=== PATIENT | male | born 1995 | race Caucasian/White ===

== ENCOUNTER → 2017-05-29 | Outpatient (CLI) | payer OTHER | LOC: BMCIMAGING 13:43 | PROVIDERS: ATTEND Family Medicine | DX: S92.351A Displaced fracture of fifth metatarsal bone, right foot, initial encounter for closed fracture (principal) ==

== ENCOUNTER → 2017-06-19 | Outpatient (CLI) | payer OTHER | LOC: BMCIMAGING 14:03 | PROVIDERS: ATTEND Podiatrist Foot & Ankle Surgery | DX: S92.351D Displaced fracture of fifth metatarsal bone, right foot, subsequent encounter for fracture with routine healing (principal) ==

== ENCOUNTER 2018-02-07 19:29 | Observation (INO) | payer OTHER ==
[2018-02-07] MEDS ORDERED: NS 1,000 ML IV ONE ×2 (20:03→20:11)
[2018-02-07 20:08] LABS: PLATELET COUNT 188 10^3/uL (150-400)
[2018-02-07] MEDS ORDERED: ONDANSETRON 4 MG/2 ML VIAL IVP ONE (20:11)
[2018-02-07] MEDS ORDERED: HYDROmorphONE/DILAUDID 1 MG/ML INJ IVP ONE (20:11)
--- NOTE | 2018-02-07 20:11 | EDPHY ---
H & P Stated Complaint: RLQ ABD PAIN X2 DAYS Time Seen by Provider: 02/07/18 19:56 HPI/ROS: CHIEF COMPLAINT: Right lower quadrant abdominal pain x2 days HISTORY OF PRESENT ILLNESS: 22-year-old male complaining of acute right lower quadrant abdominal pain for the past 2 days. Intermittent nausea. No vomiting. Last ate at 1:30 p.m. today. Bowel movements normal. No testicular pain. No trauma. REVIEW OF SYSTEMS: A ten point review of systems was performed and is negative with the exception of the items mentioned in the HPI PAST MEDICAL & SURGICAL HISTORY: No pertinent medical or surgical history SOCIAL HISTORY: Student. PHYSICAL EXAM (Prior to examination, patient consented to physical exam, hands were washed and my usual and customary physical exam procedures followed) 1) GENERAL: Well-developed, well-nourished, alert and oriented. Appears uncomfortable. 2) HEAD: Normocephalic, atraumatic 3) HEENT: Pupils equal, round, reactive to light bilaterally. Sclera anicteric. 4) NECK: Full range of motion, no meningeal signs. 5) LUNGS: Clear auscultation bilaterally, no wheezes, no rhonchi, no retractions. 6) HEART: Regular rate and rhythm, no murmur, no heave, no gallop. 7) ABDOMEN: Guarding abdomen, focal tenderness in the right lower quadrant, no focal tenderness, negative Grissom's, negative Rovsing's, negative peritoneal sign, 8) MUSCULOSKELETAL: Moving all extremities, no focal areas of tenderness, no obvious trauma. No peripheral edema or discoloration. 9) BACK: No CVA tenderness, no midline vertebral tenderness, no fluctuance, no step-off, no obvious trauma, no visual or palpable abnormality. 10) SKIN: No rash, no petechiae. 11) : Normal male external genitalia bilateral testicles nontender, no high- riding testicle, bilateral cremasteric reflex present and brisk. DIFFERENTIAL DIAGNOSIS: My differential diagnosis includes, but is not limited to, acute appendicitis, acute cholecystitis, bowel obstruction, acute pancreatitis, testicular torsion, gastritis and urinary tract infection. The patient understands that this diagnosis is provisional and can never be 100% accurate. This is a partial list of diagnoses considered. These considerations are based on history, physical exam, past history and reassessment. - Personal History Current Tetanus Diphtheria and Acellular Pertussis (TDAP): Yes - Medical/Surgical History Hx Asthma: No Hx Chronic Respiratory Disease: No Hx Diabetes: No Hx Cardiac Disease: No Hx Renal Disease: No Hx Cirrhosis: No Hx Alcoholism: No Hx HIV/AIDS: No Hx Splenectomy or Spleen Trauma: No Other PMH: DENIES - Social History Smoking Status: Never smoked Constitutional: Initial Vital Signs Temperature (C) 37.0 C 02/07/18 19:32 Heart Rate 70 02/07/18 19:32 Respiratory Rate 18 02/07/18 19:32 Blood Pressure 126/82 H 02/07/18 19:32 O2 Sat (%) 97 02/07/18 19:32 O2 Delivery Mode Room Air Allergies/Adverse Reactions: No Known Allergies Allergy (Unverified 02/07/18 19:31) Medical Decision Making - Diagnostics Imaging Results: Imaging Impressions Abdomen Ultrasound 02/07/18 20:03 Impression: 1. Acute appendicitis. Results called to Harjit Skinner PA-C, at 10:45 PM. ED Course/Re-evaluation: 8:04 p.m.: Focal tenderness to palpation right lower quadrant. Will obtain laboratory studies, ultrasound, he remains NPO since 1:30 p.m. today 10:38 p.m.: Abdominal ultrasound interpreted by staff radiologist positive for acute appendicitis. Will contact surgeon. Patient remains NPO since 1:30 p.m. Today 10:42 p.m.: Consultation with Dr. Derek Boogie, requests IV ertapenem, will consult for surgery. I saw this patient independently based on established practice protocols. Care of patient under supervision of secondary supervising physician Dr Jarrett with whom I discussed case. - Data Points Laboratory Results: Laboratory Results 02/07/18 19:45 02/07/18 19:45 02/07/18 02/07/18 19:45 19:45 WBC 18.45 10^3/uL H 10^3/uL (3.80-9.50) RBC 5.73 10^6/uL 10^6/uL (4.40-6.38) Hgb 17.5 g/dL g/dL (13.7-17.5) Hct 49.1 % % (40.0-51.0) MCV 85.7 fL fL (81.5-99.8) MCH 30.5 pg pg (27.9-34.1) MCHC 35.6 g/dL g/dL (32.4-36.7) RDW 11.6 % % (11.5-15.2) Plt Count 188 10^3/uL 10^3/uL (150-400) MPV 11.4 fL fL (8.7-11.7) Neut % (Auto) 87.8 % H % (39.3-74.2) Lymph % (Auto) 7.0 % L % (15.0-45.0) [place] % (Auto) 4.6 % % (4.5-13.0) Eos % (Auto) 0.0 % L % (0.6-7.6) Baso % (Auto) 0.2 % L % (0.3-1.7) Nucleat RBC Rel Count 0.0 % % (0.0-0.2) Absolute Neuts (auto) 16.20 10^3/uL H 10^3/uL (1.70-6.50) Absolute Lymphs (auto) 1.29 10^3/uL 10^3/uL (1.00-3.00) Absolute Monos (auto) 0.84 10^3/uL H 10^3/uL (0.30-0.80) Absolute Eos (auto) 0.00 10^3/uL L 10^3/uL (0.03-0.40) Absolute Basos (auto) 0.04 10^3/uL 10^3/uL (0.02-0.10) Absolute Nucleated RBC 0.00 10^3/uL 10^3/uL (0-0.01) Immature Gran % 0.4 % % (0.0-1.1) Immature Gran # 0.08 10^3/uL 10^3/uL (0.00-0.10) Sodium 137 mEq/L mEq/L (135-145) Potassium 4.0 mEq/L mEq/L (3.3-5.0) Chloride 100 mEq/L mEq/L (97-110) Carbon Dioxide 24 mEq/l mEq/l (22-31) Anion Gap 13 mEq/L mEq/L (8-16) BUN 15 mg/dL mg/dL (7-23) Creatinine 0.9 mg/dL mg/dL (0.7-1.3) Estimated GFR > 60 Glucose 91 mg/dL mg/dL (70-100) Calcium 10.2 mg/dL mg/dL (8.5-10.4) Total Bilirubin 2.6 mg/dL H mg/dL (0.1-1.4) Conjugated Bilirubin 0.2 mg/dL mg/dL (0.0-0.5) Unconjugated Bilirubin 2.4 mg/dL H mg/dL (0.0-1.1) AST 24 IU/L IU/L (17-59) ALT 23 IU/L IU/L (21-72) Alkaline Phosphatase 81 IU/L IU/L (38-126) Total Protein 8.0 g/dL g/dL (6.3-8.2) Albumin 4.9 g/dL g/dL (3.5-5.0) Lipase 43 IU/L IU/L (23-300) Medications Given: Discontinued Medications Hydromorphone HCl (Dilaudid) 1 mg IVP EDNOW ONE Stop: 02/07/18 20:12 Last Admin: 02/07/18 20:14 Dose: 1 mg Sodium Chloride (Ns) 1,000 mls @ 0 mls/hr IV ONCE ONE PRN Reason: Wide Open Stop: 02/07/18 20:04 Last Admin: 02/07/18 20:16 Dose: 1,000 mls Sodium Chloride (Ns) 1,000 mls @ 0 mls/hr IV ONCE ONE PRN Reason: Wide Open Stop: 02/07/18 20:12 Last Admin: 02/07/18 20:19 Dose: 1,000 mls Ertapenem 1 gm/ Sodium (Chloride) 100 mls @ 200 mls/hr IV EDNOW ONE PRN Reason: Protocol Stop: 02/07/18 23:09 Last Admin: 02/07/18 23:11 Dose: 100 mls Ketorolac Tromethamine (Toradol) 15 mg IVP EDNOW ONE Stop: 02/07/18 21:57 Last Admin: 02/07/18 22:11 Dose: 15 mg Ondansetron HCl (Zofran) 4 mg IVP EDNOW ONE Stop: 02/07/18 20:12 Last Admin: 02/07/18 20:16 Dose: 4 mg Departure - Departure Disposition: [facility] Acute Clinical Impression: Acute appendicitis Qualifiers: Acute appendicitis type: with localized peritonitis Qualified Code(s): K35.3 - Acute appendicitis with localized peritonitis Condition: Fair Referrals: NONE *PRIMARY CARE P,. [Primary Care Provider] - As per Instructions
[2018-02-07] MEDS ORDERED: KETOROLAC 15 MG/1 ML SDV IVP ONE (21:56)
[2018-02-07] MEDS ORDERED: ERTAPENEM 1 GM in NS 100 ML IV ONE (22:40)
[2018-02-07] MEDS ORDERED: ceFAZolin 1 GM/5 ML SYR ONE (23:54)
[2018-02-07] MEDS ORDERED: HEPARIN 5,000 UNIT/0.5 ML INJ ONE (23:54)
[2018-02-08] MEDS ORDERED: MIDAZOLAM 2 MG/2 ML VIAL ONE (00:13)
[2018-02-08] MEDS ORDERED: MIDAZOLAM 2 MG/2 ML VIAL IVP ONE (00:19)
[2018-02-08] MEDS ORDERED: ROCURONIUM 50 MG/5 ML VIAL ONE ×2 (00:21→00:45)
[2018-02-08] MEDS ORDERED: DEXAMETHASONE 4 MG/ML VIAL ONE (00:21)
[2018-02-08] MEDS ORDERED: LIDOCAINE 2% 100 MG/5 ML SYR ONE (00:21)
[2018-02-08] MEDS ORDERED: ONDANSETRON 4 MG/2 ML VIAL ONE (00:21)
[2018-02-08] MEDS ORDERED: SUGAMMADEX SODIUM 200 MG/2 ML VIAL IVP ONE (00:21)
[2018-02-08] MEDS ORDERED: PROPOFOL 200 MG/20 ML VIAL ONE (00:21)
[2018-02-08] MEDS ORDERED: fentaNYL 250 MCG/5 ML INJ ONE (00:21)
--- NOTE | 2018-02-08 00:30 | PDANEPAE ---
ANE History of Present Illness Laparoscopic appendectomy ANE Past Medical History - Pulmonary History Hx Oxygen in Use at Home: No Hx Sleep Apnea: No - Endocrine History Hx Diabetes: No ANE Review of Systems Review of systems is: negative Review of Systems: - Exercise capacity Exercise capacity: >=4 METS ANE Patient History - Allergies Allergies/Adverse Reactions: No Known Allergies Allergy (Unverified 02/07/18 19:31) - NPO status NPO Since - Liquids (Date): 02/07/18 NPO Since - Liquids (Time): 13:30 NPO Since - Solids (Date): 02/07/18 NPO Since - Solids (Time): 13:30 - Anes Hx Anes Hx: no prior problems - Smoking Hx Smoking Status: Never smoked Marijuana use: Yes - Family Anes Hx Family Anes Hx: none ANE Labs/Vital Signs - Labs Result Diagrams: 02/07/18 19:45 02/07/18 19:45 - Vital Signs Vital Signs: reviewed preoperatively; see RN documention for details Blood Pressure: 108/59 Heart Rate: 57 Respiratory Rate: 18 O2 Sat (%): 93 Height: 177.8 cm Weight: 72.575 kg ANE Physical Exam - Airway Neck exam: FROM Mallampati Score: Class 2 Mouth exam: normal dental/mouth exam - Pulmonary Pulmonary: no respiratory distress - Cardiovascular Cardiovascular: regular rate and rhythym - ASA Status ASA Status: II, E ANE Anesthesia Plan Anesthesia Plan: general endotracheal anesthesia (RSI) Urgent/Emergent Case: Mesha charles completed preop but documented later for safe timely pt care
--- NOTE | 2018-02-08 00:32 | POSTANESTH ---
Post Anesthetic Evaluation Cardiovascular Status: Normal, Stable, Similar to Pre-Op Cond Respiratory Status: Normal, Stable, Similar to Pre-op Cond. Level of Consciousness/Mental Status: Can Participate in Eval, Mildly Sleepy, Arousable Pain Control: Adequate, Prn Tx Ordered Nausea/Vomiting Control: Adequate, Prn Tx Ordered Complications Possibly Related to Anesthesia: None Noted
[2018-02-08] MEDS ORDERED: PROMETHAZINE HCL 25 MG/ML INJ IVP PRN (00:33)
[2018-02-08] MEDS ORDERED: ONDANSETRON 4 MG/2 ML VIAL IVP PRN (00:33)
[2018-02-08] MEDS ORDERED: DEXAMETHASONE 4 MG/ML VIAL IVP PRN (00:33)
[2018-02-08] MEDS ORDERED: MEPERIDINE 25 MG/0.5 ML AMP IVP PRN (00:33)
[2018-02-08] MEDS ORDERED: ACETAMINOPHEN 500 MG TAB PO PRN (00:33)
[2018-02-08] MEDS ORDERED: NALOXONE HCL 0.4 MG/ML INJ IVP PRN (00:33)
[2018-02-08] MEDS ORDERED: fentaNYL 100 MCG/2 ML INJ IVP PRN (00:33)
[2018-02-08] MEDS ORDERED: oxyCODONE IR 5 MG TAB PO PRN (00:33)
[2018-02-08] MEDS ORDERED: HYDROmorphONE/DILAUDID 1 MG/ML INJ IVP PRN ×2 (00:33→02:02)
[2018-02-08] MEDS ORDERED: HYDROCODONE/APAP 5/325 TAB PO PRN (00:33)
--- NOTE | 2018-02-08 00:44 | GHP ---
[f rep st] History and Physical ADMITTING DIAGNOSIS: Acute appendicitis. HISTORY: The patient is a 22-year-old white male who was in his usual state of good health. Yesterday he ate old trail mix and had a transient abdominal upset. He slept well last night. Today at noon, he ate and started having a constant right lower quadrant pain. He had another meal at 12:30 before going to work, and the pain was dramatically worse. He came home at 6 p.m. and vomited twice. There is no history of recent upper respiratory tract infection , diarrhea, or prior similar symptoms. He has not had any antibiotics for travel. There is no history of inflammatory bowel disease. There is no history of prior abdominal surgery. He smoked a pack a day from ages [age]. He drinks approximately 4 beers a week. He has no known drug allergies. He does not take any medications. He has had no prior surgery. There is no history of rheumatic fever, tuberculosis , hepatitis, or transfusions. Review of systems is absolutely negative. There are no limits on his activities. No history of steroid use. FAMILY HISTORY: His mother is 50 years old and alive and well. His father is 56 years old and alive and well. He has an older brother who is 25 and a younger brother who is 19. Both are healthy. There are no bleeding disorders, clotting disorders, difficulty with anesthesia in the patient or the family. PHYSICAL EXAMINATION: GENERAL: He is awake, alert, in no acute distress. He has received pain medications. HEENT: His skull is normocephalic and atraumatic. No focal lateralizing neurologic findings. BACK: Unremarkable. LUNGS: Clear to auscultation. There are no carotid bruits. NECK: His thyroid is not enlarged. There is no cervical, supraclavicular, axillary, or inguinal lymphadenopathy. CARDIAC: S1, S2 normal. Normal split of S2. ABDOMEN: Hypoactive bowel sounds. He is tender with cough to the right of the umbilicus, approximately 3 fingerbreadths. Psoas and obturator signs are negative. To palpation, left upper quadrant is 1, left midabdomen is 1, left lower quadrant is 1, epigastrium is 1, periumbilical area is 2 suprapubic area is 2, right upper quadrant area is 1, right mid abdomen is 2, right lower quadrant is 3. His white count is 18.5 with 88% neutrophils. His hematocrit is 49. His platelet count is 188,000. His bilirubin is 2.6 with indirect of 2.4. The ultrasound shows a noncompressible tubular structure which is 1 cm in diameter. He does have mesenteric adenitis identified on ultrasound. I will plan to perform a laparoscopic appendectomy. The patient and his mother understand the planned procedure and wish to proceed as outlined. /[id number]/MODL MTDD
[2018-02-08] MEDS ORDERED: fentaNYL 100 MCG/2 ML INJ ONE (01:29)
--- NOTE | 2018-02-08 01:53 | POSTOPPROG ---
Post Op Note Date of Operation: 02/08/18 Surgeon: Derek Boogie Anesthesia: GET(General Endotracheal) Pre-op Diagnosis: acute appendicitis with mesenteric adenitis by sono Post-op Diagnosis: acute gangrenous appendicitis with mesenteric adenitis Indication: acute appendicitis with mesenteric adenitis by sono Procedure: laparoscopic appendectomy Findings: acute gangrenous appendicitis with mesenteric adenitis Inf/Abcess present in the surg proc area at time of surgery?: No EBL: Minimal Total fluids administered: 750 Complications: none Specimen(s): appendix
[2018-02-08] MEDS ORDERED: LR 1,000 ML IV SCH (02:30)
--- NOTE | 2018-02-08 02:42 | GOP ---
[f rep st] OPERATIVE REPORT DATE OF OPERATION: 02/08/2018 SURGEON: Derek Boogie MD PREOPERATIVE DIAGNOSIS: Acute appendicitis with mesenteric adenitis by sonography. POSTOPERATIVE DIAGNOSIS: Acute gangrenous appendicitis with mesenteric adenitis. PROCEDURE PERFORMED: FINDINGS: Acute gangrenous appendicitis with mesenteric adenitis. SPECIMENS: Appendix. INDICATIONS: Acute appendicitis with mesenteric adenitis with sonography. DESCRIPTION OF PROCEDURE: The patient was placed on the operating table in supine position. After induction of adequate general endotracheal anesthesia, the patient is carefully clipped, prepped, and draped. A surgical time-out was carried out and agreed to by all members of the operative team. A curvilinear incision is made at the umbilicus. This is continued down to the level of the rectus sheath. Rectus sheath was elevated between Allis clamps and divided in the midline. A pursestring in a row PDS was placed. An 11-12 mm disposable Laurence trocar was positioned. Intraabdominal insufflation was carried out to 15 mmHg at high flow. A 5 mm port was placed through an oblique left lower quadrant incision and a 2nd 5 mm port was placed through a transverse suprapubic incision. There was a small amount of translucent fluid present in the abdomen. The appendix was easily identified and elevated. The mesoappendix was divided with the Harmonic scalpel. Dissection was continued with Harmonic scalp to free all periappendiceal fat down to the level of the cecum. The appendix was transected with a cuff of cecum using a 35 mm powered Endo ZIGGY stapler. The specimen is placed in an EndoCatch bag and removed via the umbilical incision. Pneumoperitoneum was re-established. The small bowel was run for a distance of 3 feet. Mesenteric adenitis was identified, but no Meckel's diverticulum. Irrigation with heparin and Ancef containing irrigant was carried out. Ports were removed under direct vision. Pneumoperitoneum was released. Inverted simple suture of #0 PDS was placed at the midpoint of the fascial defect and tied. The pursestring was now carefully tied. Hemostasis was checked and found to be excellent. Inverted simple sutures of #4-0 Vicryl were used to close all skin incisions. Mastisol and Steri-Strips were placed. Band- Aids were positioned. The patient was taken to recovery in stable and satisfactory condition. FLUIDS ADMINISTERED: 750 mL. /[id number]/MODL MTDD
[2018-02-08] MEDS: ACETAMINOPHEN 500 MG TAB PO SCH ×2 (02:51→10:30)
[2018-02-08] MEDS ORDERED: KETOROLAC 30 MG/1 ML SDV IVP SCH (06:00)
[2018-02-08] MEDS ORDERED: OXYCODONE/APAP 5/325 TAB PO PRN (08:44)
--- NOTE | 2018-02-08 11:02 | SOAPPROG ---
SOAP Progress Note Assessment/Plan: Assessment: 22 y/o M s/p lap appy POD #1 S: No complaints. Pain under control. Not passing gas or BMs yet. O: Alert Afebrile RRR No increased WOB Abdomen: soft, mildly tttp, +Bs Plan: Dispo home today after he tolerates a regular meal. Follow up in 2 weeks. 02/08/18 11:00 Objective: Vital Signs Temp Pulse Resp BP Pulse Ox 36.3 C 45 L 16 115/60 96 02/08/18 08:04 02/08/18 08:04 02/08/18 08:04 02/08/18 08:04 02/08/18 08:04 02/07/18 02/08/18 02/09/18 05:59 05:59 05:59 Intake Total 2240 500 Output Total 420 Balance 2240 80 ICD10 Worksheet Patient Problems: Problems Problem Status Onset Acute appendicitis Acute
[2018-02-08 11:49] VITALS: BP 119/70
--- NOTE | 2018-02-08 11:58 | ASMTCMCOM ---
CM Note CM Note Notes: Pt will DC today with no needs. Date Signed: 02/08/2018 11:54 AM Electronically Signed By:Gem Winkler LCSW
--- NOTE | 2018-02-08 11:59 | ASMTLACE ---
LACE Length of stay for Answers: Less than 1 day current admission Acuity / Level of Answers: No Care: Did the patient have an inpatient admission? # of Emergency department Answers: 1-2 visits in the last 6 months Score: 1 Date Signed: 02/08/2018 11:54 AM Electronically Signed By:Gem Winkler LCSW
== END 2018-02-08 14:53 | disposition home or self-care (01) ==
LOC: F1N 02-08 01:51
PROVIDERS: ADMIT Surgery; ATTEND Surgery
PROC: 0DTJ4ZZ Resection of Appendix, Percutaneous Endoscopic Approach (ICD-10-PCS; principal; 2018-02-07)
DX: K35.80 Unspecified acute appendicitis (principal); I88.0 Nonspecific mesenteric lymphadenitis
CPT/HCPCS: 44970; 76705; 96361; 96365; 96375; 96376; 99285; G0378; J1100; J1170; J1335; J1644; J1885; J2001; J2250; J2405; J2704; J3010